=== PATIENT | female | born 1980 | race Caucasian/White ===

== ENCOUNTER 2016-09-04 18:06 | Emergency (ER) | payer MEDICAID ==
[2016-09-04] MEDS ORDERED: KETOROLAC 60 MG/2 ML VIAL IVP STA (18:28)
[2016-09-04] MEDS ORDERED: KETOROLAC 30 MG/ML VIAL ONE (18:37)
[2016-09-04] MEDS ORDERED: HYDROmorphone 1 MG/ML SYRINGE IVP STA (19:57)
[2016-09-04] MEDS ORDERED: HYDROmorphone 1 MG/ML SYRINGE ONE (19:57)
[2016-09-04] MEDS ORDERED: HYDROcod/ACET 5/325 Prepack 6 PO STA (21:27)
[2016-09-04] MEDS ORDERED: HYDROcod/ACET 5/325 Prepack 6 PO ONE (21:29)
== END 2016-09-04 21:37 | disposition home or self-care (01) ==
DX: R10.2 Pelvic and perineal pain (principal); R03.0 Elevated blood-pressure reading, without diagnosis of hypertension; F17.200 Nicotine dependence, unspecified, uncomplicated; Z79.3 Long term (current) use of hormonal contraceptives
CPT/HCPCS: 76830; 76856; 80053; 81003; 81025; 83690; 85025; 96374; 96375; 99283; 99284; J1170

== ENCOUNTER 2017-07-03 15:05 | Emergency (ER) | payer MEDICAID ==
[2017-07-03] MEDS ORDERED: TETANUS/DIPHTHERIA/PERTUSSIS 0.5 ML SYRINGE IM ONE (15:13)
[2017-07-03 15:17] VITALS: BP 128/67
--- NOTE | 2017-07-03 15:20 | ED Physician Documentation ---
PD HPI UPPER EXT INJURY - Stated complaint Stated Complaint: LT THUMB LAC - History obtained from History obtained from: Patient - History of Present Illness Location: Left, Finger (Stabbed her thumb with a screwdriver while working on something at home just prior to arrival. 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, LEEP (Cervical surgery) - Present Medications Home Medications: Ambulatory Orders Medication Instructions Recorded Confirmed Venlafaxine [Effexor] 50 mg ORAL DAILY 06/01/14 08/19/15 Bcp 10/10/15 - Allergies Allergies/Adverse Reactions: Allergies Allergy/AdvReac Type Severity Reaction Status Date / Time nickel [Nickel] AdvReac Rash Verified 08/19/15 07:06 - Social History Does the pt smoke?: Yes Smoking Status: Current every day smoker Does the pt drink ETOH?: No Does the pt have substance abuse?: No - Immunizations Immunizations are current?: Yes - POLST Patient has POLST: No PD ED PE NORMAL - Vitals Vital signs reviewed: Yes - General General: Alert and oriented X 3, No acute distress - Extremities Extremities: Other (There is a tiny wound on the tuft of the left thumb, but a 2 mm laceration that is hemostatic. NTTP) - Neuro Neuro: Alert and oriented X 3, Normal speech Results - Vitals Vitals: Vital Signs - 24 hr 07/03/17 15:11 Temperature 36.5 C Heart Rate 70 Respiratory 18 Rate Blood Pressure 128/67 O2 Saturation 100 Oxygen O2 Source Room air Procedures - Laceration (location) L thumb Length in cm: 0.2 Wound type: Linear Wound Preparation: Irrigated copiously NS Skin layer closure: Dermabond Other: Tetanus booster given Complexity: Simple Departure - Departure Disposition: Home, Self Care Clinical Impression: Thumb laceration Qualifiers: Encounter type: initial encounter Damage to nail status: without damage Foreign body presence: without foreign body Laterality: left Qualified Code(s): S61.012A - Laceration without foreign body of left thumb without damage to nail , initial encounter Condition: Good Record reviewed to determine appropriate education?: Yes Instructions: ED Laceration Hand
== END 2017-07-03 15:45 | disposition home or self-care (01) ==
LOC: ED 15:05
DX: S61.012A Laceration without foreign body of left thumb without damage to nail, initial encounter (principal); W22.8XXA Striking against or struck by other objects, initial encounter; Y92.009 Unspecified place in unspecified non-institutional (private) residence as the place of occurrence of the external cause; F17.200 Nicotine dependence, unspecified, uncomplicated; Z23 Encounter for immunization
CPT/HCPCS: 12001; 90471; 99282; 99283

== ENCOUNTER 2017-07-22 15:30 | Outpatient (CLI) | payer MEDICAID ==
--- NOTE | 2017-07-23 10:25 | XRAY Report ---
THREE VIEW RIGHT ANKLE: 07/22/2017 CLINICAL INDICATION: Pain. FINDINGS: AP, oblique and lateral views of the right ankle demonstrate no evidence of fracture or dislocation. The joint spaces are preserved. No effusion is present. IMPRESSION: NORMAL RIGHT ANKLE. TD: 07/23/2017 10:24
== END 2017-07-22 15:31 | disposition home or self-care (01) ==
LOC: DI 15:30
PROVIDERS: ATTEND Nurse Practitioner Gerontology
DX: M25.571 Pain in right ankle and joints of right foot (principal)

== ENCOUNTER 2017-09-19 08:27 | Emergency (ER) | payer MEDICAID ==
--- NOTE | 2017-09-19 08:51 | ED Physician Documentation ---
PD HPI BACK PAIN - Stated complaint Stated Complaint: BACK PX - Chief complaint Chief Complaint: Back Pain - History obtained from History obtained from: Patient - History of Present Illness Timing - onset: Yesterday (worse today) Timing - duration: Days (2) Timing - details: Gradual onset (had some pain in scapular and lower neck yesterrday, which worsened today. Pain with ROM of neck and left shoulder girdle. Hurts just left side.) Location: Upper, Left Quality: Pain, Spasm Associated symptoms: No: Fever, Weakness, Numbness Worsened by: Movement, Lifting, Palpation Contributing factors: Lifting. No: Trauma Recently seen: Not recently seen Review of Systems Constitutional: denies: Fever, Chills, Myalgias Nose: denies: Rhinorrhea / runny nose, Congestion Throat: denies: Sore throat Cardiac: denies: Chest pain / pressure, Palpitations Respiratory: denies: Dyspnea, Cough, Wheezing GI: denies: Abdominal Pain, Nausea, Vomiting, Diarrhea PD PAST MEDICAL HISTORY - Past Medical History Cardiovascular: None Respiratory: None Endocrine/Autoimmune: None GI: GERD, GI bleed : None HEENT: None Psych: Post traumatic stress disorder Musculoskeletal: None Derm: None - Past Surgical History Past Surgical History: Yes 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, LEEP (Cervical surgery) - Present Medications Home Medications: Ambulatory Orders Medication Instructions Recorded Confirmed Venlafaxine [Effexor] 50 mg ORAL DAILY 06/01/14 08/19/15 HYDROcod/ACETAM 5/325 [[place] 5/325] 1 tab PO Q6H PRN #15 tablet 09/19/17 Methocarbamol [Robaxin] 500 mg PO Q6H PRN #25 tablet 09/19/17 Naproxen [Naprosyn] 500 mg PO BID PRN #20 tablet 09/19/17 Trilomarzia 09/19/17 - Allergies Allergies/Adverse Reactions: Allergies Allergy/AdvReac Type Severity Reaction Status Date / Time nickel [Nickel] AdvReac Rash Verified 09/19/17 08:37 - Social History Does the pt smoke?: Yes Smoking Status: Current every day smoker Does the pt drink ETOH?: No Does the pt have substance abuse?: No - Immunizations Immunizations are current?: Yes - POLST Patient has POLST: No PD ED PE NORMAL - Vitals Vital signs reviewed: Yes - General General: Alert and oriented X 3, No acute distress, Well developed/nourished - HEENT HEENT: Ears normal, Pharynx benign - Neck Neck: Supple, no meningeal sign, No adenopathy - Cardiac Cardiac: RRR, No murmur - Respiratory Respiratory: Clear bilaterally Results - Vitals Vitals: Vital Signs - 24 hr 09/19/17 09/19/17 08:33 11:25 Temperature 36.4 C L 36.5 C Heart Rate 68 56 L Respiratory 16 16 Rate Blood Pressure 142/103 H 114/83 H O2 Saturation 98 98 Oxygen O2 Source Room air - Labs Labs: Laboratory Tests 09/19/17 09/19/17 09:21 09:22 Urine Color YELLOW Urine Clarity CLEAR Urine pH 7.5 Ur Specific [place] 1.015 1.015 Urine Protein NEGATIVE Urine Glucose (UA) NEGATIVE Urine Ketones NEGATIVE Urine Occult Blood NEGATIVE Urine Nitrite NEGATIVE Urine Bilirubin NEGATIVE Urine Urobilinogen 0.2 (NORMAL) Ur Leukocyte Esterase NEGATIVE Ur Microscopic Review NOT INDICATED Urine Culture Comments NOT INDICATED Urine HCG, Qual NEGATIVE - Rads (name of study) chest xray Radiology: Prelim report reviewed, EMP read contemporaneously (no infiltrates, effusion, nor PTX) PD MEDICAL DECISION MAKING - ED course Complexity details: reviewed results, considered differential, d/w patient Departure - Departure Disposition: 01 Home, Self Care Clinical Impression: Spasm of thoracic back muscle Condition: Stable Record reviewed to determine appropriate education?: Yes Instructions: ED Spasm Back No Trauma Follow-Up: Dhruv Rehman MD [Primary Care Provider] - Prescriptions: HYDROcod/ACETAM 5/325 [[place] 5/325] 1 tab PO Q6H PRN #15 tablet PRN Reason: Pain Methocarbamol [Robaxin] 500 mg PO Q6H PRN #25 tablet PRN Reason: Spasms Naproxen [Naprosyn] 500 mg PO BID PRN #20 tablet PRN Reason: Pain Comments: Heat and gentle stretching for the muscles. Use naproxen twice daily for the next 7-10 days. Add Robaxin if needed for muscle spasms. To that add Tylenol or hydrocodone if needed for pains. Recheck if not improved over the next several days. Return if other symptoms develop. Your chest x-ray appears normal so it does not look to be lung related. Discharge Date/Time: 09/19/17 11:25
[2017-09-19 09:35] LABS: BILIRUBIN,URINE NEGATIVE (NEGATIVE); GLUCOSE, URINE (UA) NEGATIVE (NEGATIVE); KETONES,URINE (UA) NEGATIVE (NEGATIVE); LEUKOCYTE ESTERASE, URINE NEGATIVE (NEGATIVE); NITRITE,URINE NEGATIVE (NEGATIVE); OCCULT BLOOD,URINE NEGATIVE (NEGATIVE); PH,URINE 7.5 PH (5.0-7.5); PROTEIN,URINE NEGATIVE (NEGATIVE); UROBILINOGEN,URINE 0.2 (NORMAL) E.U./dL (NORMAL)
[2017-09-19 09:44] LABS: CLARITY,URINE CLEAR (CLEAR)
[2017-09-19 09:44] LABS: HCG UR QUAL NEGATIVE
[2017-09-19] MEDS ORDERED: DEXAMETHASONE 10 MG/ML VIAL PO STA (10:16)
[2017-09-19] MEDS ORDERED: KETOROLAC 30 MG/ML VIAL IM STA (10:16)
[2017-09-19] MEDS ORDERED: METHOCARBAMOL 500 MG TABLET PO STA (10:16)
[2017-09-19] MEDS ORDERED: ACETAMINOPHEN 325 MG TABLET PO STA (10:16)
--- NOTE | 2017-09-19 10:57 | XRAY Report ---
EXAM: CHEST RADIOGRAPHY EXAM DATE: 09/19/2017 10:50 AM. CLINICAL HISTORY: Back pain left sided. COMPARISON: None. TECHNIQUE: 2 views. FINDINGS: Lungs/Pleura: No focal opacities evident. No pleural effusion. No pneumothorax. Normal volumes. Mediastinum: Heart and mediastinal contours are unremarkable. Other: No acute osseous abnormalities. IMPRESSION: 1. No acute disease in the chest. [facility] Referring Provider Line: [phone] SITE ID: [id number]
[2017-09-19 11:27] VITALS: BP 114/83
== END 2017-09-19 11:25 | disposition home or self-care (01) ==
LOC: ED 08:27
DX: M62.830 Muscle spasm of back (principal); F17.200 Nicotine dependence, unspecified, uncomplicated
CPT/HCPCS: 71046; 81003; 81025; 96372; 99283; A9270; 81001; 87086

== ENCOUNTER 2017-11-12 07:42 | Emergency (ER) | payer MEDICAID ==
[2017-11-12 07:52] VITALS: BP 138/91
[2017-11-12] MEDS ORDERED: ONDANSETRON ODT 4 MG TABLET TL STA (08:04)
--- NOTE | 2017-11-12 08:06 | ED Physician Documentation ---
PD HPI NVD - Stated complaint Stated Complaint: NAUSEA/WEAKNESS - Chief complaint Chief Complaint: Abd Pain - History obtained from History obtained from: Patient, Family - History of Present Illness Timing - onset: How many days ago (3) Timing - duration: Days (3) Timing - details: Gradual onset, Still present Associated symptoms: No: Fever, Abdominal pain Contributing factors: Sick contact (son sick with vomiting X 1 DAY) Improved by: Laying still, Vomiting Worsened by: Eating Similar symptoms before: No diagnosis Recently seen: Not recently seen - Additonal information Additional information: 37-year-old female with a history of PTSD and a prior history of peptic ulcer has developed nausea and vomiting for the past 3 days. She has been able to stay hydrated with sips of fluid but continues to have nausea. She denies frequent bathing for relief of symptoms. She does use cannabis. She has had similar episodes lasting less than one day previously. She has a young son who was sick with vomiting 1 day prior to her illness. He has recovered. Review of Systems Constitutional: denies: Fever, Chills Eyes: denies: Decreased vision Ears: denies: Ear pain Nose: denies: Congestion Throat: denies: Sore throat Cardiac: denies: Chest pain / pressure, Palpitations Respiratory: denies: Dyspnea, Cough GI: reports: Nausea, Vomiting. denies: Abdominal Pain : denies: Dysuria, Frequency Skin: denies: Rash Musculoskeletal: reports: Back pain. 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, LEEP (Cervical surgery) - Present Medications Home Medications: Ambulatory Orders Medication Instructions Recorded Confirmed Norgestimate-Ethinyl Estradiol 11/12/17 [[id number]-Fnkzyi Tablet] Ondansetron Odt [Zofran] 4 mg TL Q6H PRN #10 tablet 11/12/17 Venlafaxine ER [Effexor ER] 150 mg DAILY 11/12/17 11/12/17 - Allergies Allergies/Adverse Reactions: Allergies Allergy/AdvReac Type Severity Reaction Status Date / Time nickel [Nickel] AdvReac Rash Verified 11/12/17 07:53 - Social History Does the pt smoke?: Yes Smoking Status: Current every day smoker Does the pt drink ETOH?: No Does the pt have substance abuse?: No - Immunizations Immunizations are current?: Yes - POLST Patient has POLST: No PD ED PE NORMAL - Vitals Vital signs reviewed: Yes (hypertensive) - General General: Alert and oriented X 3, No acute distress, Well developed/nourished - HEENT HEENT: Atraumatic, PERRL - Neck Neck: Supple, no meningeal sign - Cardiac Cardiac: RRR, No murmur - Respiratory Respiratory: No respiratory distress, Clear bilaterally - Abdomen Abdomen: Soft, Non tender - Back Back: No CVA TTP, No spinal TTP - Derm Derm: Normal color, Warm and dry, No rash - Extremities Extremities: No deformity, No edema - Neuro Neuro: Alert and oriented X 3, No motor deficit, No sensory deficit, Normal speech Eye Opening: Spontaneous Motor: Obeys Commands Verbal: Oriented GCS Score: 15 - Psych Psych: Normal mood, Normal affect Results - Vitals Vitals: Vital Signs - 24 hr 11/12/17 07:49 Temperature 36.8 C Heart Rate 65 Respiratory 18 Rate Blood Pressure 138/91 H O2 Saturation 98 Oxygen O2 Source Room air Procedures - IVC sono (time) 0800 Bedside IVC sono: IVC measures (cm) (1.65), Euvolemia PD MEDICAL DECISION MAKING - ED course Complexity details: reviewed results, re-evaluated patient, considered differential, d/w patient, d/w family ED course: 37-year-old female with nausea and vomiting for 3 days is not dehydrated on interrogation of the inferior vena cava. She is administered Zofran and I have recommended she take some Pepcid for the next week. - Sepsis Event Vital Signs: Vital Signs - 24 hr 11/12/17 07:49 Temperature 36.8 C Heart Rate 65 Respiratory 18 Rate Blood Pressure 138/91 H O2 Saturation 98 Oxygen O2 Source Room air Departure - Departure Disposition: 01 Home, Self Care Clinical Impression: Gastritis Qualifiers: Gastritis type: unspecified gastritis Chronicity: acute Gastritis bleeding: without bleeding Qualified Code(s): K29.00 - Acute gastritis without bleeding Instructions: ED Gastritis Follow-Up: Dhruv Rehman MD [Primary Care Provider] - Prescriptions: Ondansetron Odt [Zofran] 4 mg TL Q6H PRN #10 tablet PRN Reason: Nausea / Vomiting
== END 2017-11-12 08:25 | disposition home or self-care (01) ==
LOC: ED 07:42
DX: K29.00 Acute gastritis without bleeding (principal); K21.9 Gastro-esophageal reflux disease without esophagitis; Z87.11 Personal history of peptic ulcer disease; F12.90 Cannabis use, unspecified, uncomplicated; F43.10 Post-traumatic stress disorder, unspecified; F17.200 Nicotine dependence, unspecified, uncomplicated
CPT/HCPCS: 99283; Q0162

== ENCOUNTER 2017-12-22 08:48 | Emergency (ER) | payer MEDICAID ==
[2017-12-22 08:56] VITALS: BP 126/79
--- NOTE | 2017-12-22 09:18 | ED Physician Documentation ---
History of Present Illness - Stated complaint Stated Complaint: R LEG PX - Chief complaint Chief Complaint: Ext Problem - History obtained from History obtained from: Patient - History of Present Illness Timing: Today Pain level max: 8 Pain level now: 4 Improved by: rest Worsened by: walking - Additonal information Additional information: states that she felt "a pop" today when she was stretching her legs today. States now hurts to walk. Has not taken anything for pain. 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, LEEP (Cervical surgery) - Present Medications Home Medications: Ambulatory Orders Medication Instructions Recorded Confirmed Norgestimate-Ethinyl Estradiol 11/12/17 [Oib-Xn-Gwzfnl Tablet] Venlafaxine ER [Effexor ER] 150 mg DAILY 11/12/17 11/12/17 Ibuprofen [Motrin] 800 mg PO Q8H PRN #30 tablet 12/22/17 - Allergies Allergies/Adverse Reactions: Allergies Allergy/AdvReac Type Severity Reaction Status Date / Time nickel [Nickel] AdvReac Rash Verified 12/22/17 08:56 - Social History Does the pt smoke?: Yes Smoking Status: Current every day smoker Does the pt drink ETOH?: No Does the pt have substance abuse?: No - Immunizations Immunizations are current?: Yes - POLST Patient has POLST: No PD ED PE NORMAL - Vitals Vital signs reviewed: Yes - General General: Alert and oriented X 3, No acute distress - Derm Derm: Warm and dry - Extremities Extremities: Other (R calf - tenderness mid calf. no deformity. negative homans. negative gutierrez. Negative liskers. NVI. no skin changes. no swelling. ) - Neuro Neuro: Alert and oriented X 3 - Psych Psych: Normal mood, Normal affect Results - Vitals Vitals: Vital Signs - 24 hr 12/22/17 08:54 Temperature 36.6 C Heart Rate 77 Respiratory 18 Rate Blood Pressure 126/79 O2 Saturation 100 Oxygen O2 Source Room air PD MEDICAL DECISION MAKING - ED course Complexity details: considered differential, d/w patient ED course: Patient is a 37-year-old female who appears to have a right calf strain. Placed in an John bandage and given crutches. She will weight-bear as tolerated. Expect this will improve over the next few days. No evidence of rupture of the gastrocnemius. No evidence of Achilles tendon rupture. No evidence of DVT. No evidence of infection. Patient counseled regarding signs and symptoms for which I believe and urgent re-evaluation would be necessary. Patient with good understanding of and agreement to plan and is comfortable going home at this time This document was made in part using voice recognition software. While efforts are made to proofread this document, sound alike and grammatical errors may occur. Normal dorsal and plantar flexion - Sepsis Event Vital Signs: Vital Signs - 24 hr 12/22/17 08:54 Temperature 36.6 C Heart Rate 77 Respiratory 18 Rate Blood Pressure 126/79 O2 Saturation 100 Oxygen O2 Source Room air Departure - Departure Disposition: 01 Home, Self Care Clinical Impression: Strain of calf muscle Qualifiers: Encounter type: initial encounter Laterality: right Qualified Code(s): S86.811A - Strain of other muscle(s) and tendon(s) at lower leg level, right leg , initial encounter Condition: Good Instructions: ED Strain Muscle Ext Follow-Up: Dhruv Rehman MD [Primary Care Provider] - Within 1 week Prescriptions: Ibuprofen [Motrin] 800 mg PO Q8H PRN #30 tablet PRN Reason: PAIN &/OR FEVER Comments: Return if you worsen. You can use ice and heat as needed. You may bear weight as tolerated. Discharge Date/Time: 12/22/17 09:40
[2017-12-22] MEDS ORDERED: IBUPROFEN 800 MG TABLET PO STA (09:28)
== END 2017-12-22 09:40 | disposition home or self-care (01) ==
LOC: ED 08:48
DX: S86.811A Strain of other muscle(s) and tendon(s) at lower leg level, right leg, initial encounter (principal); X50.1XXA Overexertion from prolonged static or awkward postures, initial encounter; Y93.89 Activity, other specified; F17.200 Nicotine dependence, unspecified, uncomplicated
CPT/HCPCS: 99283; A9270

== ENCOUNTER 2018-09-24 10:13 | Emergency (ER) | payer MEDICAID ==
[2018-09-24 10:19] VITALS: BP 155/94
[2018-09-24] MEDS ORDERED: DEXAMETHASONE 10 MG/ML VIAL PO STA (11:42)
[2018-09-24] MEDS ORDERED: CHERRY SYRUP 10 ML UDC PO ONE (11:42)
[2018-09-24] MEDS ORDERED: KETOROLAC 60 MG/2 ML VIAL IM STA (11:42)
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
== END 2018-09-24 12:14 | disposition home or self-care (01) ==
LOC: ED 10:13
DX: F17.200 Nicotine dependence, unspecified, uncomplicated (principal); S30.1XXA Contusion of abdominal wall, initial encounter; W50.1XXA Accidental kick by another person, initial encounter; Y93.F9 Activity, other caregiving; Y92.009 Unspecified place in unspecified non-institutional (private) residence as the place of occurrence of the external cause; M62.830 Muscle spasm of back
CPT/HCPCS: 96372; 99281; 99283; A9270

== ENCOUNTER 2019-06-04 10:27 | Emergency (ER) | payer MEDICAID ==
[2019-06-04 10:36] VITALS: BP 129/83
--- NOTE | 2019-06-04 10:44 | ED Physician Documentation ---
History of Present Illness - Stated complaint Stated Complaint: RT JAW PX - Chief complaint Chief Complaint: Heent - History obtained from History obtained from: Patient - History of Present Illness Timing: How many days ago (3-4) Pain level max: 5 Pain level now: 5 - Additonal information Additional information: 39-year-old female with right lower dental pain for the past several days. She states that today she squeezed and there was pus. States that she called her dentist and was told to come here for antibiotics. She will follow-up with her dentist as soon as possible. She is on the cancellation/no-show list. Nothing makes this better. Worse with eating and drinking. No fevers. 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, LEEP (Cervical surgery) - Present Medications Home Medications: Ambulatory Orders Medication Instructions Recorded Confirmed Norgestimate-Ethinyl Estradiol 1 tab PO DAILY 11/12/17 09/24/18 [Dlo-Pu-Txelow Tablet] Venlafaxine ER [Effexor ER] 150 mg DAILY 11/12/17 09/24/18 Cyclobenzaprine [Flexeril] 10 mg PO TID PRN #20 tablet 09/24/18 Hydrocodone/Acetaminophen 1 - 2 each PO Q6H PRN #14 tablet 09/24/18 [Hydrocodon-Acetaminophen 5-325] Penicillin V Potassium 500 mg PO Q6HR #40 tablet 06/04/19 - Allergies Allergies/Adverse Reactions: Allergies Allergy/AdvReac Type Severity Reaction Status Date / Time nickel [Nickel] AdvReac Rash Verified 06/04/19 10:36 - Social History Does the pt smoke?: Yes Smoking Status: Current every day smoker Does the pt drink ETOH?: No Does the pt have substance abuse?: No - Immunizations Immunizations are current?: Yes - POLST Patient has POLST: No PD ED PE NORMAL - Vitals Vital signs reviewed: Yes - General General: Alert and oriented X 3, No acute distress, Well developed/nourished - HEENT HEENT: Moist mucous membranes, Other (TTP R Lower molar - No drainable abscess. No facial swelling. No cellulitis. Normal phonation. No trismus.) - Neck Neck: Supple, no meningeal sign - Cardiac Cardiac: RRR, Strong equal pulses - Respiratory Respiratory: No respiratory distress, Clear bilaterally - Derm Derm: Warm and dry - Neuro Neuro: Alert and oriented X 3 - Psych Psych: Normal mood, Normal affect Results - Vitals Vitals: Vital Signs - 24 hr 06/04/19 10:34 Temperature 36 C L Heart Rate 65 Respiratory 16 Rate Blood Pressure 129/83 H O2 Saturation 100 Oxygen O2 Source Room air PD MEDICAL DECISION MAKING - ED course Complexity details: considered differential, d/w patient ED course: Patient with dental caries will place on antibiotics. She is well-appearing, nontoxic. Afebrile. Patient counseled regarding signs and symptoms for which I believe and urgent re-evaluation would be necessary. Patient with good understanding of and agreement to plan and is comfortable going home at this time This document was made in part using voice recognition software. While efforts are made to proofread this document, sound alike and grammatical errors may occur. Departure - Departure Disposition: 01 Home, Self Care Clinical Impression: Dental caries Condition: Good Instructions: ED Cavity Dental Follow-Up: JOSE ORTIZ MD [Primary Care Provider] - Within 1 week Prescriptions: Penicillin V Potassium 500 mg PO Q6HR #40 tablet Comments: Take all antibiotics until gone. Return if you worsen. Follow-up with your doctor for further care. Discharge Date/Time: 06/04/19 10:48
== END 2019-06-04 10:48 | disposition home or self-care (01) ==
LOC: ED 10:27
DX: K02.9 Dental caries, unspecified (principal); F17.200 Nicotine dependence, unspecified, uncomplicated
CPT/HCPCS: 99282; 99284

== ENCOUNTER 2019-08-10 10:42 | Outpatient (CLI) | payer MEDICAID | END 2019-08-10 10:43 | disposition home or self-care (01) | LOC: COV 10:42 | PROVIDERS: ATTEND Family Medicine | DX: R50.9 Fever, unspecified (principal); R05 Cough | CPT/HCPCS: 81599 ==

== ENCOUNTER 2020-02-25 08:00 | Outpatient (CLI) | payer MEDICAID ==
[2020-02-25 20:08] LABS: H. PYLORIS ANTIGEN STL NEGATIVE (Negative)
== END 2020-02-25 08:01 | disposition home or self-care (01) ==
LOC: LAB.R 08:00
PROVIDERS: ATTEND Family Medicine
DX: R15.2 Fecal urgency (principal)
CPT/HCPCS: 81599; 82274; 83993; 87045; 87046; 87177; 87209; 87329; 87338; 87427; 87493

== ENCOUNTER 2020-10-31 09:04 | Outpatient (CLI) | payer MEDICAID ==
[2020-10-31 12:27] LABS: BASOPHILS # (AUTO) 0.1 10^3/uL (0.0-0.1); BASOPHILS % (AUTO) 0.8 %; EOSINOPHILS # (AUTO) 0.2 10^3/uL (0.0-0.7); EOSINOPHILS % (AUTO) 2.8 %; HGB - HEMOGLOBIN 13.6 g/dL (12.0-16.0); LYMPHOCYTES # (AUTO) 1.6 10^3/uL (1.5-3.5); LYMPHOCYTES % (AUTO) 23.8 %; MEAN CORPUSCULAR HEMOGLOBIN 28.6 pg (27.0-31.0); MEAN CORPUSCULAR HGB CONC 32.4 g/dL (32.0-36.0); MEAN CORPUSCULAR VOLUME 88.4 fL (81.0-99.0); MEAN PLATELET VOLUME 9.7 fL (7.9-10.8); MONOCYTES # (AUTO) 0.5 10^3/uL (0.0-1.0); MONOCYTES % (AUTO) 6.9 %; NEUTROPHILS # (AUTO) 4.3 10^3/uL (1.5-6.6); NEUTROPHILS % (AUTO) 65.4 %; PLT - PLATELET COUNT 336 10^3/uL (130-450); RED BLOOD COUNT 4.75 10^6/uL (4.20-5.40); RED CELL DISTRIBUTION WIDTH 12.4 % (12.0-15.0); WHITE BLOOD COUNT 6.5 x10^3/uL (4.8-10.8)
[2020-10-31 13:09] LABS: ALBUMIN 3.9 g/dL (3.2-5.5); ALBUMIN/GLOBULIN RATIO 1.1 (1.0-2.2); ALKALINE PHOSPHATASE 55 IU/L (42-121); ALT ALANINE AMINOTRANSFERASE 23 IU/L (10-60); AST ASPARTATE AMINOTRANSFERASE 21 IU/L (10-42); BILIRUBIN,TOTAL 0.3 mg/dL (0.2-1.0); BUN - BLOOD UREA NITROGEN 12 mg/dL (6-20); CALCIUM 9.2 mg/dL (8.5-10.3); CARBON DIOXIDE - CO2 25 mmol/L (21-32); CHLORIDE 105 mmol/L (101-111); CHOL/HDL RATIO 3.8 (<4.4); CHOLESTEROL 207 mg/dL; CREATININE 0.9 mg/dL (0.4-1.0); GFR - MDRD 70 (>89); GLUCOSE 113 mg/dL (70-100); HDL CHOLESTEROL 55 mg/dL; LDL CHOLESTEROL,CALCULATED 113 mg/dL; LDL/HDL RATIO 2.1 (<4.4); SODIUM 137 mmol/L (135-145); TOTAL PROTEIN 7.5 g/dL (6.7-8.2); TRIGLYCERIDES 194 mg/dL; VLDL CHOLESTEROL 39 mg/dL
[2020-10-31 13:32] LABS: THYROID STIMULATING HORMONE 0.7 uIU/mL (0.34-5.60)
== END 2020-10-31 23:59 | disposition home or self-care (01) ==
LOC: LAB.WCP 09:04
PROVIDERS: ATTEND Nurse Practitioner Family
DX: I10 Essential (primary) hypertension (principal)
CPT/HCPCS: 36415; 80053; 80061; 83721; 84443; 85025

== ENCOUNTER 2021-03-08 09:45 | Emergency (ER) | payer MEDICAID ==
--- NOTE | 2021-03-08 10:12 | ED Physician Documentation ---
PD HPI LOWER EXT INJURY - Stated complaint Stated Complaint: R FOOT SWELLING/PX - Chief complaint Chief Complaint: Ext Problem - History obtained from History obtained from: Patient - History of Present Illness PD HPI LOW EXT INJURY LOCATION: Right, Foot, Toe Type of injury: Blunt / blow (she states her dog flopped on her foot last evening, but did not seem to hurt much then. Awoke this morning with marked pain and tenderness at great toe MTP area. No prior similar episodes.). No: Fall, Twist Where injury occurred: Home Timing - onset: Today, Last night Timing - details: Abrupt onset, Still present Worsened by: Moving, Palpating Associated symptoms: Swelling, Discolored (redness). No: Weakness, Numbness Review of Systems Constitutional: denies: Fever, Chills Nose: denies: Rhinorrhea / runny nose, Congestion Throat: denies: Sore throat Respiratory: denies: Cough Skin: denies: Rash, Lesions Neurologic: denies: Focal weakness, Numbness PD PAST MEDICAL HISTORY - Past Medical History Past Medical History: Yes Cardiovascular: Hypertension Respiratory: None Neuro: None Endocrine/Autoimmune: Other GI: GERD, GI bleed TRANSFER MAN: None : None HEENT: None Psych: Depression, Anxiety, Post traumatic stress disorder Musculoskeletal: None, Other (no prior history of gout) Derm: None - Past Surgical History Past Surgical History: Yes 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: Dilation and currettage, LEEP (Cervical surgery) - Present Medications Home Medications: Ambulatory Orders Medication Instructions Recorded Confirmed Venlafaxine ER [Effexor ER] 150 mg DAILY 11/12/17 03/08/21 norgestimate-ethinyl estradioL 1 tab PO DAILY 11/12/17 03/08/21 [Lom-Sy-Sczkzk Tablet] Buprenorphine HCl/Naloxone HCl 1 film SL TID 03/08/21 03/08/21 [Suboxone 8 mg-2 mg Sl Film] Trazodone HCl 100 mg PO HS 03/08/21 03/08/21 dexAMETHasone [Decadron] 4 mg PO DAILY #5 tablet 03/08/21 - Allergies Allergies/Adverse Reactions: Allergies Allergy/AdvReac Type Severity Reaction Status Date / Time nickel [Nickel] AdvReac Rash Verified 03/08/21 09:49 - Social History Does the pt smoke?: Yes Smoking Status: Current every day smoker Does the pt drink ETOH?: No Does the pt have substance abuse?: Yes Substance Use and Type: Marijuana - Immunizations Immunizations are current?: Yes - POLST Patient has POLST: No PD ED PE NORMAL - Vitals Vital signs reviewed: Yes - General General: Alert and oriented X 3, Well developed/nourished, Other (appears in pain with toe/foot movement and palpation. ) - Derm Derm: Normal color, Warm and dry - Extremities Extremities: Other (right great toe MTP with local redness, swelling and marked tenderness without skin sores. Tender to dorsum of foot as well. Ankle not tender. ) - Neuro Neuro: Alert and oriented X 3, No motor deficit, No sensory deficit, Normal speech Results - Vitals Vitals: Vital Signs - 24 hr 03/08/21 03/08/21 09:51 11:48 Temperature 36.7 C 36.4 C L Heart Rate 70 73 Respiratory 18 16 Rate Blood Pressure 132/93 H 127/63 O2 Saturation 97 98 Oxygen O2 Source Room air - Rads (name of study) right foot Radiology: Prelim report reviewed (no fractures), See rad report PD MEDICAL DECISION MAKING - ED course Complexity details: reviewed results (xray normal), considered differential, d/w patient Departure - Departure Disposition: 01 Home, Self Care Clinical Impression: Acute foot pain Qualifiers: Laterality: right Qualified Code(s): M79.671 - Pain in right foot Right foot strain Qualifiers: Encounter type: initial encounter Qualified Code(s): S96.911A - Strain of unspecified muscle and tendon at ankle and foot level, right foot, initial encounter Condition: Stable Record reviewed to determine appropriate education?: Yes Instructions: ED Sprain Foot Prescriptions: dexAMETHasone [Decadron] 4 mg PO DAILY #5 tablet Comments: Continue usual medications. Add ibuprofen or naproxen anti-inflammatories twice to 3 times daily over the next several days. Decadron steroid can help with inflammation through the area as well daily for the next several days. Be sure to take these with food so they do not bother your stomach. To add Tylenol every 4-6 hours if needed for pains. I would anticipate improvement over the next few days. This may be a sprain of the toe with some inflammatory arthritis from the injury. It also has the character of possible gout which can be precipitated by mild injury. These should be improved with the above treatments and get better over the next few days. I transmitted script for decadron to Haydee Kurtz in [place]. Discharge Date/Time: 03/08/21 11:48
[2021-03-08] MEDS ORDERED: KETOROLAC 30 MG/ML VIAL IM STA (10:23)
[2021-03-08] MEDS ORDERED: DEXAMETHASONE 10 MG/ML VIAL PO STA (10:23)
[2021-03-08] MEDS ORDERED: CHERRY SYRUP 10 ML UDC PO ONE (10:23)
[2021-03-08] MEDS ORDERED: ACETAMINOPHEN 325 MG TABLET PO STA (10:23)
--- NOTE | 2021-03-08 10:55 | XRAY Report ---
PROCEDURE: Foot 3 View RT INDICATIONS: Pain, base of great toe. TECHNIQUE: 3 views of the foot were acquired. COMPARISON: None. FINDINGS: Bones: No fractures or dislocations. No suspicious bony lesions. Soft tissues: No tibiotalar joint effusion. Achilles tendon appears normal. IMPRESSION: No acute osseous abnormality. Reviewed by: Rahat Denis MD on 03/08/2021 10:53 AM PDT Approved by: Rahat Denis MD on 03/08/2021 10:53 AM PDT Station ID: [id number]
[2021-03-08 11:48] VITALS: BP 127/63
== END 2021-03-08 11:48 | disposition home or self-care (01) ==
LOC: ED 09:45
DX: M79.671 Pain in right foot (principal); S96.911A Strain of unspecified muscle and tendon at ankle and foot level, right foot, initial encounter; W54.8XXA Other contact with dog, initial encounter; Y92.009 Unspecified place in unspecified non-institutional (private) residence as the place of occurrence of the external cause; I10 Essential (primary) hypertension; F17.200 Nicotine dependence, unspecified, uncomplicated
CPT/HCPCS: 73630; 96372; 99283; A9270

== ENCOUNTER 2021-07-05 07:12 | Outpatient (CLI) | payer MEDICAID ==
[2021-07-05 12:49] LABS: ALBUMIN 3.8 g/dL (3.2-5.5); ALBUMIN/GLOBULIN RATIO 1.2 (1.0-2.2); ALKALINE PHOSPHATASE 61 IU/L (42-121); ALT ALANINE AMINOTRANSFERASE 11 IU/L (10-60); AST ASPARTATE AMINOTRANSFERASE 13 IU/L (10-42); BILIRUBIN,TOTAL 0.3 mg/dL (0.2-1.0); BUN - BLOOD UREA NITROGEN 9 mg/dL (6-20); CALCIUM 9.3 mg/dL (8.5-10.3); CARBON DIOXIDE - CO2 28 mmol/L (21-32); CHLORIDE 104 mmol/L (101-111); CHOL/HDL RATIO 5.2 (<4.4); CHOLESTEROL 233 mg/dL; CREATININE 0.8 mg/dL (0.4-1.0); GFR - MDRD 79 (>89); GLUCOSE 101 mg/dL (70-100); HDL CHOLESTEROL 45 mg/dL; LDL CHOLESTEROL,CALCULATED 152 mg/dL; LDL/HDL RATIO 3.4 (<4.4); SODIUM 139 mmol/L (135-145); TRIGLYCERIDES 179 mg/dL; VLDL CHOLESTEROL 36 mg/dL
[2021-07-05 12:58] LABS: ESTIMATED AVERAGE GLUCOSE 111 mg/dL (70-100); HEMOGLOBIN A1c% 5.5 % (4.27-6.07)
== END 2021-07-05 07:13 | disposition home or self-care (01) ==
LOC: LAB.N 07:12
PROVIDERS: ATTEND Family Medicine
DX: I10 Essential (primary) hypertension (principal); R73.01 Impaired fasting glucose
CPT/HCPCS: 36415; 80053; 80061; 83036; 83721

== ENCOUNTER 2021-10-03 09:24 | Outpatient (CLI) | payer MEDICAID ==
--- NOTE | 2021-10-03 16:06 | Mammography Report ---
BILATERAL DIGITAL SCREENING MAMMOGRAM 3D/2D: 10/03/2021 CLINICAL: Baseline exam Routine screening. No prior exams were available for comparison. The tissue of both breasts is predominantly fatty. No significant masses, calcifications, or other findings are seen in either breast. IMPRESSION: NEGATIVE There is no mammographic evidence of malignancy. A 1 year screening mammogram is recommended. This exam was interpreted at Station ID: [id number]. NOTE: For mammograms, a report in lay terms will be sent to the patient. Approximately 15% of breast malignancies will not be visualized mammographically. In the management of a palpable breast mass, a negative mammogram must not discourage biopsy of a clinically suspicious lesion. Electronically Signed By: Marycruz hook/harrison:10/03/2021 12:47:43 ACR BI-RADS Category 1: Negative 3341F PARENCHYMAL PATTERN: (F) - The breast(s) demonstrate(s) diffuse fatty replacement. BI-RADS CATEGORY: (1) - 1 RECOMMENDATION: (ANNUAL) - Recommend routine annual screening mammography. [id number] 1 year screening LATERALITY: (B)
== END 2021-10-03 09:25 | disposition home or self-care (01) ==
LOC: DI.N 09:24
DX: Z12.31 Encounter for screening mammogram for malignant neoplasm of breast (principal)

== ENCOUNTER 2023-12-17 06:33 | Emergency (ER) | payer MEDICAID ==
[2023-12-17 06:47] LABS: BILIRUBIN,URINE NEGATIVE (NEGATIVE); GLUCOSE, URINE (UA) NEGATIVE (NEGATIVE); KETONES,URINE (UA) NEGATIVE (NEGATIVE); LEUKOCYTE ESTERASE, URINE NEGATIVE (NEGATIVE); NITRITE,URINE NEGATIVE (NEGATIVE); OCCULT BLOOD,URINE SMALL (NEGATIVE); PH,URINE 6.5 PH (5.0-7.5); PROTEIN,URINE NEGATIVE (NEGATIVE); UROBILINOGEN,URINE 0.2 (NORMAL) E.U./dL (NORMAL)
[2023-12-17 06:49] VITALS: BP 153/79; O2SAT 100
[2023-12-17 06:50] LABS: CLARITY,URINE HAZY (CLEAR)
[2023-12-17 06:54] LABS: BACTERIA,URINE Few /HPF (None Seen); MUCUS,URINE Few Strands; RBC,URINE 0-5 /HPF (0-5); SQUAMOUS EPITHELIAL CELL,UR MANY Squamous (<= Few); WBC,URINE 0-3 /HPF (0-5)
--- NOTE | 2023-12-17 07:07 | ED Physician Documentation ---
PD HPI FEMALE - Stated complaint Stated Complaint: - Chief complaint Chief Complaint: Abd Pain - Additional information Additional information: Generally healthy 43-year-old female who noticed some redness in the bowl after she urinated this morning. She was concerned and sought treatment in the emergency department. No back pain no abdominal pain no urinary frequency or urgency. She has never had kidney stones before does not believe she is . No nausea vomiting fevers or chills. 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, LEEP (Cervical surgery) - Present Medications Home Medications: Ambulatory Orders Medication Instructions Recorded Confirmed Venlafaxine ER [Effexor ER] 150 mg DAILY 11/12/17 03/08/21 norgestimate-ethinyl estradioL 1 tab PO DAILY 11/12/17 03/08/21 [Gls-Vo-Zmxfxy Tablet] Buprenorphine HCl/Naloxone HCl 1 film SL TID 03/08/21 03/08/21 [Suboxone 8 mg-2 mg Sl Film] Trazodone HCl 100 mg PO HS 03/08/21 03/08/21 dexAMETHasone [Decadron] 4 mg PO DAILY #5 tablet 03/08/21 - Allergies Allergies/Adverse Reactions: Allergies Allergy/AdvReac Type Severity Reaction Status Date / Time nickel [Nickel] AdvReac Rash Verified 03/08/21 09:49 - Social History Does the pt smoke?: Yes Smoking Status: Current every day smoker Does the pt drink ETOH?: No Does the pt have substance abuse?: Yes - Immunizations Immunizations are current?: Yes - POLST Patient has POLST: No PD ED PE NORMAL - Vitals Vital signs reviewed: Yes - General General: Alert and oriented X 3 - HEENT HEENT: Atraumatic - Neck Neck: Supple, no meningeal sign - Cardiac Cardiac: RRR, No murmur - Respiratory Respiratory: No respiratory distress - Abdomen Abdomen: Normal bowel sounds, Soft - Back Back: No CVA TTP - Extremities Extremities: No edema Results - Vitals Vitals: Vital Signs - 24 hr 12/17/23 06:38 Temperature 36.0 C L Heart Rate 72 Respiratory 18 Rate Blood Pressure 153/79 H O2 Saturation 100 Oxygen O2 Source Room air - Labs Labs: Laboratory Tests 12/17/23 12/17/23 06:00 06:42 Urine Color YELLOW Urine Clarity HAZY Urine pH 6.5 Ur Specific [place] 1.025 Urine Protein NEGATIVE Urine Glucose (UA) NEGATIVE Urine Ketones NEGATIVE Urine Occult Blood SMALL H Urine Nitrite NEGATIVE Urine Bilirubin NEGATIVE Urine Urobilinogen 0.2 (NORMAL) Ur Leukocyte Esterase NEGATIVE Urine RBC 0-5 Urine WBC 0-3 Ur Squamous Epith Cells MANY Squamous H Urine Bacteria Few Urine Mucus Few Strands Urine Culture Comments NOT INDICATED Urine HCG, Qual NEGATIVE PD Medical Decision Making - ED course ED course: Patient with benign presentation. Normal vitals completely benign abdominal exam no sign of UTI or renal stone. Her urine is reassuring as is her urine hCG. She did not eat beets or have any other possible contributors to red- colored urine. However she felt her urine was clear when she passed that here in the ED. Will reassure her have her follow-up with PCP as needed. Departure - Departure Disposition: 01 Home, Self Care Clinical Impression: Hematuria Condition: Good Follow-Up: Jacki Frank ARNP [Primary Care Provider] - Comments: As I mentioned, there is no sign of infection or kidney stone. Your urine is reassuring. I am also reassured by her lack of abdominal pain or back pain as a sign of kidney infection or kidney stone. I know you are concerned about the overall health of your kidneys given your late father's diagnosis of kidney failure, however there is no sign on your urine today that your kidneys are not filtering properly. Would reassure you for now, if you have recurrence of seeing blood in the urine, abdominal pain back pain fevers or chills come back and see us in the emergency department. Otherwise follow-up with your primary care physician in 1 to 2 weeks. Forms: PCP List
[2023-12-17 07:08] LABS: HCG UR QUAL NEGATIVE
== END 2023-12-17 07:35 | disposition home or self-care (01) ==
LOC: ED 06:33
DX: R31.9 Hematuria, unspecified (principal); I10 Essential (primary) hypertension; Z79.899 Other long term (current) drug therapy; F17.200 Nicotine dependence, unspecified, uncomplicated
CPT/HCPCS: 81001; 81025; 87086; 99282; 99283

== ENCOUNTER 2024-01-23 05:29 | Emergency (ER) | payer MEDICAID ==
[2024-01-23 05:44] VITALS: BP 134/85; O2SAT 100
--- NOTE | 2024-01-23 05:46 | ED Physician Documentation ---
History of Present Illness - Stated complaint Stated Complaint: SWOLLEN FACE - Chief complaint Chief Complaint: Heent - Additonal information Additional information: 44-year-old female with history of hypertension, tooth fracture, torticollis, dental caries presents with facial swelling. Patient states in the last week, she has had irritation and discomfort in her upper left mouth, with progressive swelling in her face this morning. She denies visual changes or eye pain, hearing changes, fevers or chills, trismus, drooling, voice changes, shortness of breath, recent antibiotics, antibiotic allergies, recent dental trauma, difficulty eating or drinking, or other new concerns. She smokes. She has a history of prior fracture tooth to left upper mouth. She had a similar episode few years ago and saw a dentist for it and knows this process. No other new concerns. She is taking ibuprofen at home, though not yet this morning. She understands careful use of narcotics if taken. ROS Constitutional: no fever, no chills Eyes: no visual disturbance, no discharge Ears, Nose, Mouth, Throat: no rhinorrhea, no sore throat Cardiovascular: no chest pain, no palpitations Respiratory: no cough, no shortness of breath Gastrointestinal: no abdominal pain, no vomiting, no diarrhea Genitourinary: no dysuria, no hematuria Musculoskeletal: no back pain, no neck stiffness Skin: no rash, no wound Neurological: no focal weakness, no focal numbness PD PAST MEDICAL HISTORY - Past Medical History Past Medical History: Yes Cardiovascular: Hypertension Respiratory: None Neuro: None Endocrine/Autoimmune: Other GI: GERD, GI bleed 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 : None HEENT: None Psych: Depression, Anxiety, Post traumatic stress disorder Musculoskeletal: None, Other Derm: None - Past Surgical History Past Surgical History: Yes 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: 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 and currettage, LEEP (Cervical surgery) - Present Medications Home Medications: Ambulatory Orders Medication Instructions Recorded Confirmed Venlafaxine ER [Effexor ER] 150 mg DAILY 11/12/17 01/23/24 norgestimate-ethinyl estradioL 1 tab PO DAILY 11/12/17 01/23/24 [Vyf-Ji-Unhtvm Tablet] Trazodone HCl 100 mg PO HS 03/08/21 01/23/24 Amox/Clav 875/125 [Augmentin] 1 each PO Q12H #20 tablet 01/23/24 Naloxone HCl Nasal [Narcan Nasal] 4 mg NS ONCE PRN #2 kit 01/23/24 oxyCODONE [Roxicodone] 5 mg PO Q6H PRN 2 Days #6 tablet 01/23/24 - Allergies Allergies/Adverse Reactions: Allergies Allergy/AdvReac Type Severity Reaction Status Date / Time nickel [Nickel] AdvReac Rash Verified 01/23/24 05:42 - Social History Does the pt smoke?: Yes Smoking Status: Current every day smoker Does the pt drink ETOH?: No Does the pt have substance abuse?: Yes - Immunizations Immunizations are current?: Yes - POLST Patient has POLST: No PD ED PE NORMAL - Free text exam Free text exam: Const: no acute distress, non toxic appearing; calm, conversant, pleasant HEENT: uvula midline. No tonsillar swelling or exudate. Poor dentition present. There is focal erythema without fluctuance to L upper gums. Her L face is swollen adjacent to this but without induration or fluctuance or erythema. No other edema or swelling of oral cavity including tongue, under tongue, cheeks, submental, sublingual areas. No pain on palpation of throat. No pus or exudate. No drooling. No trismus. No stridor. EOMI without pain or double vision; PERRLA. Neck: supple, non-tender Resp: no respiratory distress, clear to auscultation bilaterally Card: regular rate and rhythm, no murmurs Abd: non tender diffusely, no rigidity or rebound or guarding Back: no T or L spine tenderness, no CVA tenderness bilaterally Extrem: no deformities, no swelling bilateral lower extremities Neuro: ANOx4, naturopathic physician 2-12 intact, intact sensation and strength all extremities, normal coordination and ambulation Skin: no rash, warm and dry Results - Vitals Vitals: Vital Signs - 24 hr 01/23/24 05:30 Temperature 36.4 C L Heart Rate 66 Respiratory 14 Rate Blood Pressure 134/85 H O2 Saturation 100 Oxygen O2 Source Room air PD Medical Decision Making - ED course ED course: This patients presentation is highly consistent with periodontal infection, currently without drainable intraoral abscess. There is no evidence on exam of orbital cellulitis, bony tenderness over jaw to suggest osteomyelitis, airway compromise, Seth's angina, or Lemierre's syndrome. Laboratory or CT evaluation are unlikely to benefit this patient. We are initiating Augmentin 875 mg p.o. twice daily x 10 days, and I am prescribing short course oxycodone along with Narcan for careful home use. Patient understands importance of strict return precautions, close follow-up, along with dental assessment outpatient. She is able to readily return if needed. She is happy with plan and has no other new concerns. Patient ambulatory and tolerating PO. Exams and vital signs reassuring. Patient questions answered and plan reviewed. Strong return precautions given. Patient discharged. Departure - Departure Forms: PCP List
[2024-01-23] MEDS: ACETAMINOPHEN 325 MG TABLET PO STA (06:10)
[2024-01-23] MEDS: AMOX/CLAV 875 MG/125 MG TABLET PO STA (06:11)
[2024-01-23] MEDS: IBUPROFEN 600 MG TABLET PO STA (06:12)
== END 2024-01-23 06:19 | disposition home or self-care (01) ==
LOC: ED 05:29
DX: R22.0 Localized swelling, mass and lump, head (principal); I10 Essential (primary) hypertension; F17.200 Nicotine dependence, unspecified, uncomplicated; F32.A Depression, unspecified; F41.9 Anxiety disorder, unspecified; F43.10 Post-traumatic stress disorder, unspecified
CPT/HCPCS: 99283; 99284; A9270